=== PATIENT | female | born 1985 | race Caucasian/White ===

== ENCOUNTER 2021-12-21 02:25 | Outpatient (CLI) | payer BC ==
[2021-12-21] VITALS (8 sets, daily range): BP systolic 113–136; BP diastolic 68–86; PULSE 78–103; TEMP 97.7–98.4
[~2021-12-21] VITALS: Ht 160 cm; Wt 70.0 kg
[~2021-12-21 02:25] MED LIST: GLUCOPHAGE500 MG/TAB PO; LO LOESTRIN FE1 TAB PO; SYNTHROID0.075 MG/T PO
[2021-12-21 03:27] LABS: HEMOGLOBIN 12.3 g/dl (12.5-16.0); MEAN CELL VOLUME 85 fl (80.0-100.0); MEAN CORPUSCULAR HEMOGLOBIN 30 pg (27-31); MEAN CORPUSCULAR HGB CONC 35 g/dl (33.0-37.0); MEAN PLATELET VOLUME 8.7 fl (7.4-10.4); PLATELET COUNT 230 K/mm3 (130-400); RED BLOOD COUNT 4.08 M/mm3 (4.10-5.30); REDCELL DISTRIBUTION WIDTH-CV 12.4 % (11.5-14.5)
[2021-12-21 03:29] LABS: HEMATOCRIT 34.7 % (37.0-47.0)
--- NOTE | 2021-12-21 03:32 | NUR ---
Pt presented to floor ambulatory from ER at 0230. Pt in obvious pain, states pain is on mid-lower right side of back and radiates around to front lower quad, rates pain 10/10. Pt denies leaking of fluid, vaginal bleeding, PEREZ, changes in vision, and increased swelling. Pt reports good movement. VSS, pt vomits due to pain. EFM applied, Dr. Chase notified.
[2021-12-21 03:43] LABS: ALBUMIN 3.4 gm/dL (3.5-5.0); BILIRUBIN,TOTAL 0.3 mg/dL (0.2-1.2); CALCIUM 8.5 mg/dL (8.4-10.2); CREATININE, serum 0.88 mg/dL (0.57-1.11); TOTAL PROTEIN 6.4 gm/dL (6.2-8.1)
--- NOTE | 2021-12-21 04:05 | NUR ---
FHR tracing [id number] maternal HR, difficult to keep FHR due to maternal movement and position discomfort.
--- NOTE | 2021-12-21 04:20 | NUR ---
Pt taken off monitor at this time. Pt up to bathroom, voided and vomiting.
[2021-12-21 04:23] LABS: NEUTROPHILS 75 % (42.0-75.2)
[2021-12-21 04:24] LABS: EOSINOPHIL 3 % (0-4); LYMPHOCYTE 15 % (20.0-51.0); PLATELET ESTIMATE NORMAL (NORMAL)
[2021-12-21 04:35] LABS: COLLECTION METHOD CLEAN CATCH
--- NOTE | 2021-12-21 04:46 | NUR ---
Pt resting in LL position, now rating pain 8/10
[2021-12-21 04:52] LABS: MUCOUS Present (NOT PRESENT); PH 6 (5-8); URINE APPEARANCE Cloudy (CLEAR/HAZY); URINE BACTERIA Rare /hpf (NONE SEEN); URINE BILIRUBIN Negative (NEGATIVE); URINE BLOOD 2+ (NEGATIVE); URINE COLOR Yellow (YELLOW); URINE GLUCOSE 1+ (NEGATIVE); URINE KETONE 1+ (NEGATIVE); URINE LEUKOCYTE ESTERASE Negative (NEGATIVE); URINE NITRATE Negative (NEGATIVE); URINE PROTEIN(semi-quant) Negative (NEGATIVE); URINE RBC >50 /hpf (0-2); URINE UROBILINOGEN Negative (NEGATIVE)
--- NOTE | 2021-12-21 06:19 | NUR ---
Pt now resting comfortably in room, rating pain at 1/10.
--- NOTE | 2021-12-21 08:48 | NUR ---
0806 SONO TECH AT BEDSIDE FOR RENAL ULTRASOUND.
--- NOTE | 2021-12-21 11:21 | NUR ---
0930 RENAL ULTRASOUND REPORT CALLED TO DR HENDRICKSON. ORDERS TO DISMISS TO HOME TO FOLLOW UP WITH REGULAR APPOINTMENT. 0916 ALL DISCHARGE INSTRUCTIONS GIVEN TO PATIENT BY Tamie SHANE RN. DISMISS TO HOME WITH VERBAL UNDERSTANDING. ALEJO BONILLA'S BY BAUDILIO.
== END 2021-12-21 10:45 | disposition home or self-care (01) ==
LOC: LDRO 02:25
PROVIDERS: Obstetrics & Gynecology
DX: O26.892 Other specified pregnancy related conditions, second trimester (principal); M54.50 Low back pain, unspecified; R10.9 Unspecified abdominal pain; Z3A.26 26 weeks gestation of pregnancy
CPT/HCPCS: J2270; J2405; J7120

== ENCOUNTER 2022-03-16 08:20 | Inpatient (IN) | payer SELFPAY ==
[~2022-03-16] VITALS: Ht 160 cm; Wt 94.1 kg
[2022-03-21] VITALS (54 sets, daily range): BP systolic 110–176; BP diastolic 65–119; PULSE 71–146; TEMP 97.3–98.6
--- NOTE | 2022-03-21 06:30 | NUR ---
pt ambulatory onto unit to LR4. changed into clean gown. FHR monitor/TOCO applied. Pt denies any vaginal bleeding, decreased movement, leaking of fluid, or regular contractions. assessments done. consents signed. 0645 IV started in right hand. No redness/drainage/edema noted. 0718 Pitocin started per protocol.
[2022-03-21] MEDS ORDERED: PRENATAL TABLET PO (06:33)
[2022-03-21] MEDS ORDERED: ASPIRIN 81M81 MG/TA2 PO (06:33)
[2022-03-21] MEDS ORDERED: PROBIOTIC BLEN1 EACH PO (06:33)
[2022-03-21 07:32] LABS: BASO % 0.4 % (0.0-2.0); EOS # 0.2 K/mm3 (0.0-0.7); GRAN # 5.3 K/mm3 (1.4-6.5); GRAN % 66.8 % (42.2-75.2); LYMPH # 1.6 K/mm3 (1.2-3.4); LYMPH % 20.4 % (20.0-51.0); MEAN CELL VOLUME 78 fl (80.0-100.0); MEAN CORPUSCULAR HGB CONC 32 g/dl (33.0-37.0); MEAN PLATELET VOLUME 9.7 fl (7.4-10.4); MONO # 0.8 K/mm3 (0.1-0.6); MONO % 9.6 % (1.7-9.3); PLATELET COUNT 245 K/mm3 (130-400); RED BLOOD COUNT 4.01 M/mm3 (4.10-5.30); REDCELL DISTRIBUTION WIDTH-CV 14.6 % (11.5-14.5)
[2022-03-21 07:33] LABS: HEMATOCRIT 31.2 % (37.0-47.0); HEMOGLOBIN 9.9 g/dl (12.5-16.0); MEAN CORPUSCULAR HEMOGLOBIN 25 pg (27-31)
[2022-03-21 08:41] LABS: MUCOUS Present (NOT PRESENT); PH 6 (5-8); URINE APPEARANCE Hazy (CLEAR/HAZY); URINE BACTERIA Rare /hpf (NONE SEEN); URINE BILIRUBIN Negative (NEGATIVE); URINE BLOOD Negative (NEGATIVE); URINE COLOR Yellow (YELLOW); URINE GLUCOSE Negative (NEGATIVE); URINE KETONE Negative (NEGATIVE); URINE LEUKOCYTE ESTERASE Negative (NEGATIVE); URINE NITRATE Negative (NEGATIVE); URINE PROTEIN(semi-quant) 1+ (NEGATIVE); URINE RBC 0-2 /hpf (0-2); URINE UROBILINOGEN Negative (NEGATIVE)
[2022-03-21 08:54] LABS: COLLECTION METHOD CLEAN CATCH
[2022-03-21 08:57] LABS: ALBUMIN 2.6 gm/dL (3.5-5.0); BILIRUBIN,TOTAL 0.3 mg/dL (0.2-1.2); CALCIUM 8.9 mg/dL (8.4-10.2); CREATININE, serum 0.79 mg/dL (0.57-1.11); POTASSIUM 3.9 mmol/L (3.5-4.5); TOTAL PROTEIN 5.7 gm/dL (6.2-8.1)
--- NOTE | 2022-03-21 09:00 | NUR ---
0851 this rn at bedside readjusting FHR monitor. 0856 this rn at bedside readjusting FHR monitor. Maternal heart rate tracing.
--- NOTE | 2022-03-21 10:05 | NUR ---
0907 Dr nuñez on unit. reviewing R strip. 0945 In patients room. ultrasound confirms vertex presentation. [id number] pt ambulating to restroom 1000 Dr Nuñez SVE /2. AROM. Dedra care done. Clean pad placed. Plan of care discussed. pt verbalizes understanding. call light within reach
--- NOTE | 2022-03-21 10:50 | NUR ---
1020 this rn at bedside sitting up patient for epidural. Maternal heart rate tracing intermittently on FHR monitor. 1043 Test dose given by Garry Mcdonough. Pt tolerates procedure well. Safety precautions and plan of care discussed. Pt verbalizes understanding. Pericare done. Call light within reach.
--- NOTE | 2022-03-21 12:35 | NUR ---
[id number] THIS RN AT BEDSIDE. REPOSITIONING PATIENT, LR INCREASED.
--- NOTE | 2022-03-21 17:12 | NUR ---
[address] HENDRICKSON /+1. 1415 THIS RN AT BEDSIDE PT BEGINS PUSHING WITH CONTRACTIONS. [id number] THIS RN REPOSITIONING PT RIGHT LATERAL, LEFT LATERAL, KNEES TO CHEST, FOOT PLATES WHILE PUSHING WITH CONTRACTIONS. [phone] HENDRICKSON REVIEWING FHR STRIP. 1700 DR HENDRICKSON DISCUSSES WITH PT THE PLAN OF CARE FOR C SECTION.
[2022-03-22 00:10] VITALS: BP 137/84; PULSE 93; TEMP 97.6
[2022-03-22 04:52] VITALS: BP 139/91; PULSE 98; TEMP 97.5
[2022-03-22 06:20] LABS: HEMATOCRIT 25.9 % (37.0-47.0); HEMOGLOBIN 8.1 g/dl (12.5-16.0)
[2022-03-22 07:15] VITALS: BP 131/91; PULSE 90; TEMP 97.7
[2022-03-22 12:00] VITALS: BP 135/87; PULSE 91; TEMP 97.9
--- NOTE | 2022-03-22 14:25 | NUR ---
The patient is a surrogate. SW met with the patient to follow up. The patient's mother was at bedside. The patient states that she is doing well. She had no concerns for SW and states that she has her older children for support. No additonal needs at this time.
[2022-03-22 21:00] VITALS: BP 130/80; PULSE 87; TEMP 97.8
[2022-03-23 07:45] VITALS: BP 128/78; PULSE 72; TEMP 97.4
[2022-03-23] MEDS ORDERED: FERRO-TIME325 MG PO (08:23)
[2022-03-23] MEDS ORDERED: IBU600 MG PO (08:23)
[2022-03-23] MEDS ORDERED: PERCOCET 325 MG1 TA2 PO (08:23)
[2022-03-23 16:27] VITALS: BP 127/95; PULSE 78; TEMP 97.7
[2022-03-23 21:00] VITALS: BP 143/95; PULSE 85; TEMP 98.1
[2022-03-24 00:55] VITALS: BP 111/61; PULSE 80
[2022-03-24 08:30] VITALS: BP 135/99; PULSE 100; TEMP 98.6
== END 2022-03-24 10:35 | disposition home or self-care (01) | DRG 788 ==
LOC: OB 03-21 06:11 → LDR 03-21 06:11 → OB 03-22 03:10
PROVIDERS: ADMIT Obstetrics & Gynecology
PROC: 10D00Z1 Extraction of Products of Conception, Low, Open Approach (ICD-10-PCS; principal; 2022-03-21)
PROC: 3E033VJ Introduction of Other Hormone into Peripheral Vein, Percutaneous Approach (ICD-10-PCS; 2022-03-21)
DX: O24.420 Gestational diabetes mellitus in childbirth, diet controlled (principal); O13.4 Gestational [pregnancy-induced] hypertension without significant proteinuria, complicating childbirth; O99.284 Endocrine, nutritional and metabolic diseases complicating childbirth; E03.9 Hypothyroidism, unspecified; O36.63X0 Maternal care for excessive fetal growth, third trimester, not applicable or unspecified; O32.4XX0 Maternal care for high head at term, not applicable or unspecified; O76 Abnormality in fetal heart rate and rhythm complicating labor and delivery; O90.81 Anemia of the puerperium; D64.9 Anemia, unspecified; Z37.0 Single live birth; Z3A.39 39 weeks gestation of pregnancy
CPT/HCPCS: J0360; J1100; J1885; J2270; J2400; J2405; J2590; J7120

== ENCOUNTER → 2022-12-17 | Outpatient (CLI) | payer BC ==
[~2022-12-17] VITALS: Ht 160 cm; Wt 79.4 kg
[~2022-12-17] MED LIST changes: +ASPIRIN 81M81 MG/TA2 PO; +ASPIRIN E.C. 8181 MG PO; +CALCIUM 600 MG1 EAC2 PO; +FERRO-TIME325 MG PO; +GLUCOSAMIN 500; +IBU600 MG PO; +LEVOXYL0.1 MG PO; +ONE-A-DAY ESSE1 EACH PO; +PERCOCET 325 MG1 TA2 PO; +PRENATAL TABLET PO; +PROBIOTIC BLEN1 EACH PO; +VITAMIN B COMPL1 SGL PO
[2022-12-17 13:22] VITALS: BP 143/94; PULSE 76; TEMP 98.5
[2022-12-17 14:05] VITALS: BP 145/103; PULSE 86
== END ==
LOC: COL.RAD 12:50
DX: M51.35 Other intervertebral disc degeneration, thoracolumbar region (principal)
CPT/HCPCS: J3301

== ENCOUNTER → 2023-02-06 | Outpatient (CLI) | payer BC ==
[~2023-02-06] VITALS: Ht 160 cm; Wt 77.7 kg
[2023-02-06 11:53] VITALS: BP 134/98; PULSE 79; TEMP 98.5
[2023-02-06 13:00] VITALS: BP 131/93; PULSE 79
== END ==
LOC: COL.RAD 11:32
DX: M51.9 Unspecified thoracic, thoracolumbar and lumbosacral intervertebral disc disorder (principal)
CPT/HCPCS: J3301

== ENCOUNTER 2023-12-11 18:09 | Observation (INO) | payer SELFPAY ==
[~2023-12-11] VITALS: Ht 160 cm; Wt 87.3 kg
--- NOTE | 2023-12-11 18:25 | NUR ---
181: PT AMBULATORY TO LR4 WITH DAUGHTERS AT HER SIDE. 1824: THIS RN TO BEDSIDE AFTER SHIFT REPORT. THE PATIENT IS HERE WITH A COMPLAINT OF 6/10 PAIN TO HER LEFT LOWER BACK THAT WRAPS AROUND TO THE FRONT. THE PATIENT DENIES ANY LOF OR VAGINAL BLEEDING. SHE DOES STATE THAT THERE IS GOOD MOVEMENT. PT HAD VOIDED PRIOR TO THIS RN ASSUMING CARE. THE PATIENT IS CHANGED INTO CLEAN GOWN AND IS HAVING A DIFFICULT TIME GETTING COMFORTABLE. 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 ADMISSION COMPLETED. PHYSICIAN NOTIFIED OF PATIENT'S ARRIVAL. SEE PHYSICIAN NOTIFICATION.
[2023-12-11] MEDS ORDERED: LR 1,000 ML IV PRN (19:15)
[2023-12-11 19:30] VITALS: BP 153/102; PULSE 107
[2023-12-11 19:33] LABS: BASO % 0.3 % (0.0-2.0); EOS # 0.2 K/mm3 (0.0-0.7); EOS % 1.6 % (0.0-4.0); GRAN # 8.9 K/mm3 (1.4-6.5); GRAN % 75.6 % (42.2-75.2); HEMOGLOBIN 10.3 g/dl (12.5-16.0); LYMPH # 1.5 K/mm3 (1.2-3.4); MEAN CELL VOLUME 83 fl (80.0-100.0); MEAN CORPUSCULAR HEMOGLOBIN 29 pg (27-31); MEAN CORPUSCULAR HGB CONC 34 g/dl (33.0-37.0); MEAN PLATELET VOLUME 8.8 fl (7.4-10.4); MONO # 1.1 K/mm3 (0.1-0.6); PLATELET COUNT 213 K/mm3 (130-400); RED BLOOD COUNT 3.62 M/mm3 (4.10-5.30); REDCELL DISTRIBUTION WIDTH-CV 12.2 % (11.5-14.5)
[2023-12-11 19:34] LABS: HEMATOCRIT 29.9 % (37.0-47.0)
[2023-12-11 19:48] LABS: ALBUMIN 2.9 gm/dL (3.5-5.0); BILIRUBIN,TOTAL 0.3 mg/dL (0.2-1.2); CALCIUM 8.9 mg/dL (8.4-10.2); CREATININE, serum 0.81 mg/dL (0.57-1.11); POTASSIUM 3.3 mmol/L (3.5-4.5); TOTAL PROTEIN 5.9 gm/dL (6.2-8.1)
[2023-12-11 20:04] LABS: URINE APPEARANCE CLEAR (CLEAR/HAZY); URINE BLOOD NEGATIVE (NEGATIVE); URINE COLOR YELLOW (YELLOW); URINE GLUCOSE NEGATIVE (NEGATIVE); URINE KETONE NEGATIVE (NEGATIVE); URINE NITRATE NEGATIVE (NEGATIVE); URINE PROTEIN(semi-quant) NEGATIVE (NEGATIVE); URINE UROBILINOGEN 0.2 E.U/dL (0.2-1.0)
[2023-12-11] MEDS ORDERED: Cyclobenzaprine 10 MG TAB PO ONE (20:15)
[2023-12-11] MEDS ORDERED: Morphine 4 MG/ML VIAL IV PRN (20:15)
[2023-12-11 20:17] LABS: COLLECTION METHOD CLEAN CATCH
[2023-12-11] MEDS ORDERED: Ondansetron 4 MG/2 ML VIAL IV PRN (20:30)
--- NOTE | 2023-12-11 21:48 | NUR ---
2030: PT REMOVED FROM CONTINUOUS MONITOR PER . PLAN FOR PATIENT TO STAY THE NIGHT AND MOVE TO ANTEPARTUM CARE FOR OVERNIGHT MONITORING AND MORNING EVALUATION. PT IS STILL IN SEVERE PAIN. SEE PHYSICIAN NOTIFICATION. 2147: AFTER GIVING THE PATIENT 2 DOSES OF MORPHINE, THIS RN PLACED THE PATIENT BACK ON CONTINUOUS MONITORING D/T UNCONTROLLED PAIN. THIS RN EXPRESSED TO THE CONCERNS WITH THE PATIENT'S UNCONTROLLED PAIN AND REQUESTED THE DOCTOR COME TO THE HOSPITAL TO SEE THE PATIENT. SEE PHYSICIAN NOTIFICATION.
--- NOTE | 2023-12-11 23:00 | NUR ---
AT BEDSIDE, THE PATIENT IS STILL IN A CONSIDERABLE AMOUNT OF PAIN. UROLOGY CONSULT REQUESTED BY .
--- NOTE | 2023-12-11 23:08 | NUR ---
PT IS ABLE TO BE REMOVED FROM CONTINUOUS MONITORING AT THIS TIME AND TRANSFERRED TO ANTEPARTUM CARE FOR OVERNIGHT MONITORING. THE PATIENT UNDERSTANDS THE PLAN OF CARE DISCUSSED PER AND VERBALIZED UNDERSTANDING.
[2023-12-11] MEDS ORDERED: oxyCODONE/Acetaminophen 5-325 MG TAB PO PRN (23:45)
--- NOTE | 2023-12-11 23:45 | NUR ---
REPORT GIVEN TO BAUDILIO ALVAREZ.
[2023-12-12] VITALS (11 sets, daily range): BP systolic 105–132; BP diastolic 61–84; PULSE 77–102; TEMP 97.7–98.6
--- NOTE | 2023-12-12 00:21 | NUR ---
K-Pad given to pt to aid with pain control, pt instructed on placement and use of K-Pad. Pt verbalized understanding and pad placed for comfort.
[2023-12-12] MEDS ORDERED: LR 1,000 ML IV SCH ×2 (03:15→10:00)
--- NOTE | 2023-12-12 08:53 | NUR ---
Patient laying supine in the bed for ultrasound. Tolerated well. Patient states that "after moving around and them pushing on me, it hurts more". Reporting pain at a 4 out of 10. Patient will try to rest and allow Percocet that was administered to work. Following imaging, came in and advised that the plan is to see what the ultrasound shows and also what Urology recommends in consult. Patient expressed understanding. Bed lowered and call light within reach.
[2023-12-12] MEDS ORDERED: Lidocaine PF 2% (20 MG/ML) 5 ML VIAL ONE ×2 (14:17→15:01)
--- NOTE | 2023-12-12 14:20 | NUR ---
BEDSIDE REPORT TO ONDINA FROM OPERATING ROOM. PATIENT TO OPERATING ROOM VIA BED.
--- NOTE | 2023-12-12 14:22 | NUR ---
PATIENT LEFT THE FLOOR AT 2:20PM. ESCORTED BY SURGERY. HAND OFF REPORT GIVEN TO PRIMARY NURSE.
[2023-12-12] MEDS ORDERED: Lidocaine 2% (20 MG/ML) 20 ML UROJET UR ONE (15:08)
[2023-12-12] MEDS ORDERED: fentaNYL 50 MCG/ML 2 ML VIAL IV PRN (15:15)
[2023-12-12] MEDS ORDERED: Ondansetron 4 MG/2 ML VIAL IV PRN (15:15)
[2023-12-12] MEDS ORDERED: Morphine 4 MG/ML VIAL IV PRN (15:15)
[2023-12-12] MEDS ORDERED: Meperidine 50 MG/ML 1 ML VIAL IV PRN (15:15)
--- NOTE | 2023-12-12 19:54 | NUR ---
1953- EFM X2 APPLIED FOR NST. PT REPORTS NO LEAKING, NO BLEEDING, NO CONTRACTIONS OR CRAMPING AND STATES SHE IS FEELING BABY MOVE. 2024- MONITORS REMOVED. PT DENIES FURTHER NEEDS.
--- NOTE | 2023-12-12 22:00 | NUR ---
PATIENT UP TO VOID X3. 900ML, 800ML, AND 400 ML VOIDS DOCUMENTED. FIRST 2 VOIDS TEA COLORED, STRAINED WITH NO SEDIMENT NOTED. THIRD VOID WAS YELLOW WITH RED TINT, STRAINED WITH NO SEDIMENT. IV FLUIDS FINISHED AT 2145. IV SITE INT AND REMOVED BY THIS RN AT 2150. TIP INTACT. PT UP AND DRESSED INDEPENDENTLY. FAMILY IN ROOM AT THIS TIME. STEADY GAIT NOTED WITH FULL WEIGHTBEARING. PT DENIED PAIN AND NAUSEA AND DECLINED PAIN MEDICATION. DISCHARGE PAPERWORK BROUGHT TO PATIENT'S ROOM. PATIENT VISIT REPORT, PATIENT HEALTH SUMMARY, AND DISCHARGE SUMMARY REVIEWED WITH PATIENT. DISCHARGE FOLLOW UP REVIEWED WITH PATIENT. DISCUSSED CONCERNING SIGNS/SYMPTOMS AND WHEN TO CONTACT PROVIDER. REVIEWED AT HOME CARE. PATIENT VERBALIZES UNDERSTANDING AND QUESTIONS ANSWERED. PT SIGNED PATIENT SIGNATURE PAGE AND D/C SUMMARY. PT AND FAMILY WALKED TO DOOR AND D/C OFF UNIT BY THIS RN.
== END 2023-12-12 21:57 | disposition home or self-care (01) ==
LOC: LDRO 18:09 → OB 23:20
PROVIDERS: Obstetrics & Gynecology; ADMIT Obstetrics & Gynecology
DX: O99.891 Other specified diseases and conditions complicating pregnancy (principal); N13.2 Hydronephrosis with renal and ureteral calculous obstruction; O99.282 Endocrine, nutritional and metabolic diseases complicating pregnancy, second trimester; O34.32 Maternal care for cervical incompetence, second trimester; O34.219 Maternal care for unspecified type scar from previous cesarean delivery; O09.522 Supervision of elderly multigravida, second trimester; Z3A.26 26 weeks gestation of pregnancy
CPT/HCPCS: C1769; C2617; G0378; J0690; J2270; J2405; J2704; J7120

== ENCOUNTER 2024-02-18 06:37 | Outpatient (CLI) | payer SELFPAY ==
[2024-02-18] VITALS (8 sets, daily range): BP systolic 126–155; BP diastolic 84–101; PULSE 66–100
[~2024-02-18] VITALS: Ht 160 cm; Wt 88.6 kg
--- NOTE | 2024-02-18 06:40 | NUR ---
PATIENT AMBULATES ON TO UNIT TO LABOR ROOM FOR CERCLAGE REMOVAL PREP. EFM AND TOCO INITIATIED. SPO2 MONITOR INTIAITED. PATIENT DENIES LEAKING OF FLUID OR BLEEDING. PATIENT DENIES CONTRACTIONS. PATIENT REPORTS NORMAL MOVEMENT.
[2024-02-18] MEDS ORDERED: LR 1,000 ML IV PRN (06:45)
--- NOTE | 2024-02-18 06:45 | NUR ---
PATIENT AMBULATES ON TO UNIT TO LABOR ROOM FOR CERCLAGE REMOVAL.PATIENT SETUP ON EFM AND TOCO. SPO2 MONITOR INTIAITED.
[2024-02-18] MEDS ORDERED: Chloroprocaine PF 3% (30 MG/ML) 20 ML VIAL ONE (06:48)
[2024-02-18] MEDS ORDERED: Ondansetron 4 MG/2 ML VIAL IV ONE (07:00)
[2024-02-18] MEDS ORDERED: GLUCOPHAGE500 MG/TAB PO (07:19)
[2024-02-18] MEDS ORDERED: OMEGA-31 SGL PO (07:20)
[2024-02-18] MEDS ORDERED: PRILOSEC 20MG20 MG PO (07:21)
[2024-02-18] MEDS ORDERED: PROMETRIUM200 M1 PO (07:21)
[2024-02-18] MEDS ORDERED: HUMALOGKP50/50 SQ (07:22)
--- NOTE | 2024-02-18 07:22 | NUR ---
PATIENT AMBULATES TO SUITE FOR SPINAL AND CERCLAGE REMOVAL.
[2024-02-18 10:13] LABS: COLLECTION METHOD CLEAN CATCH
[2024-02-18 10:16] LABS: BASO % 0.5 % (0.0-2.0); EOS # 0.1 K/mm3 (0.0-0.7); EOS % 1.4 % (0.0-4.0); GRAN # 5.8 K/mm3 (1.4-6.5); GRAN % 71.4 % (42.2-75.2); LYMPH # 1.2 K/mm3 (1.2-3.4); LYMPH % 15.2 % (20.0-51.0); MEAN CELL VOLUME 81 fl (80.0-100.0); MEAN CORPUSCULAR HGB CONC 32 g/dl (33.0-37.0); MEAN PLATELET VOLUME 9.2 fl (7.4-10.4); MONO # 0.8 K/mm3 (0.1-0.6); MONO % 10.1 % (1.7-9.3); PLATELET COUNT 202 K/mm3 (130-400); RED BLOOD COUNT 3.65 M/mm3 (4.10-5.30); REDCELL DISTRIBUTION WIDTH-CV 14.4 % (11.5-14.5)
[2024-02-18 10:20] LABS: PH 6.5 (5.0-8.5); URINE APPEARANCE CLOUDY (CLEAR/HAZY); URINE BLOOD 2+ (NEGATIVE); URINE COLOR YELLOW (YELLOW); URINE GLUCOSE NEGATIVE (NEGATIVE); URINE KETONE NEGATIVE (NEGATIVE); URINE NITRATE NEGATIVE (NEGATIVE); URINE PROTEIN(semi-quant) NEGATIVE (NEGATIVE)
[2024-02-18 10:31] LABS: HEMATOCRIT 29.4 % (37.0-47.0); HEMOGLOBIN 9.3 g/dl (12.5-16.0); MEAN CORPUSCULAR HEMOGLOBIN 25 pg (27-31)
[2024-02-18 10:38] LABS: ALBUMIN 2.4 g/dL (3.5-5.0); BILIRUBIN,TOTAL 0.3 mg/dL (0.2-1.2); CALCIUM 8.4 mg/dL (8.4-10.2); CREATININE, serum 0.72 mg/dL (0.57-1.11); POTASSIUM 3.9 mEq/L (3.5-4.5); TOTAL PROTEIN 5.2 g/dl (6.2-8.1)
[2024-02-18 11:12] LABS: SQUAMOUS EPITHELIAL 0-2 /hpf (0-10); URINE BACTERIA MODERATE /hpf (NONE SEEN); URINE RBC 0-2 /hpf (0-2)
== END 2024-02-18 11:10 | disposition home or self-care (01) ==
LOC: LDRO 06:37
PROVIDERS: Obstetrics & Gynecology
DX: O99.891 Other specified diseases and conditions complicating pregnancy (principal); Z3A.36 36 weeks gestation of pregnancy
CPT/HCPCS: J2401; J2405; J7120